=== PATIENT | male | born 1965 | race Caucasian/White ===

== ENCOUNTER 2016-09-12 17:27 | Emergency (ER) | payer SELFPAY ==
[~2016-09-12] VITALS: Ht 172.7 cm; Wt 99.8 kg
--- NOTE | 2016-09-12 17:30 | NUR ---
pt alonso from home to er bed 11. presents w/ laceration to bridge of the nose and upper lip s/p fall while going after a ball playing tennis. pt etoh. denies ko. placed geoff monitor. 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 blood sugar 113 in the field. pt is aao. stable vitals. awaiting md gallardo.
--- NOTE | 2016-09-12 17:37 | NUR ---
dr thao at bedside for eval.
[2016-09-12] MEDS ORDERED: IV SET PRIMARY 1 EA INFUS.SET MC ONE (17:47)
[2016-09-12] MEDS ORDERED: TDAP [DIPH/PERTUSSIS/TET] 0.5 ML VIAL IM ONE ×2 (17:47→18:00)
[2016-09-12] MEDS ORDERED: IV NS 0.9% 1,000 ML ONE (17:47)
[2016-09-12 17:50] LABS: BASOPHILS % (AUTO) 0.5 % (0.0-2.0); EOSINOPHILS # (AUTO) 0.1 /CMM (0.0-0.7); EOSINOPHILS % (AUTO) 1.1 % (0.0-6.0); HEMATOCRIT 41 % (39-51); HEMOGLOBIN 13.8 g/dL (13.5-17.5); LYMPHOCYTES # (AUTO) 1.8 /CMM (0.8-4.8); LYMPHOCYTES % (AUTO) 21.7 % (20.0-44.0); MEAN CORPUSCULAR HEMOGLOBIN 33 PG (26.0-33.0); MEAN CORPUSCULAR HGB CONC 34 g/dl (31.0-36.0); MEAN CORPUSCULAR VOLUME 96 fL (80-96); MONOCYTES # (AUTO) 0.5 /CMM (0.1-1.30); NEUTROPHILS # (AUTO) 5.8 /CMM (1.8-8.9); NEUTROPHILS % (AUTO) 70.7 % (43.0-81.0); PLATELET COUNT (AUTO) 199 /CMM (150-450); RDW COEFFICIENT OF VARIATION 12.9 (11.5-15.0); RED BLOOD CELL COUNT(AUTO) 4.24 MIL/uL (4.5-6.0); WHITE BLOOD COUNT (AUTO) 8.2 K/uL (4.3-11.0)
--- NOTE | 2016-09-12 17:54 | NUR ---
pt to radiology for head ct scan via wheelchair.
[2016-09-12] MEDS ORDERED: LIDOCAINE 2% 20 ML MDV TP ONE (18:00)
[2016-09-12] MEDS ORDERED: IV NS 0.9% 1,000 ML BAG IV ONE (18:00)
[2016-09-12 18:02] LABS: CALCIUM, SERUM 8.5 mg/dL (8.5-10.1); CREATININE 1.2 mg/dL (0.6-1.3); POTASSIUM 3.9 mmol/L (3.5-5.1)
--- NOTE | 2016-09-12 19:35 | NUR ---
laceration repair done. wound care provided. d/c to friends in stable condition.
[2016-09-12 19:38] VITALS: BP 138/84
== END 2016-09-12 19:41 | disposition home or self-care (01) ==
LOC: ER 17:30
DX: S01.21XA Laceration without foreign body of nose, initial encounter (principal); S01.511A Laceration without foreign body of lip, initial encounter; F10.129 Alcohol abuse with intoxication, unspecified; F17.200 Nicotine dependence, unspecified, uncomplicated; Z88.0 Allergy status to penicillin; Z23 Encounter for immunization; W18.39XA Other fall on same level, initial encounter; Y93.73 Activity, racquet and hand sports; Y92.89 Other specified places as the place of occurrence of the external cause; Y99.9 Unspecified external cause status
CPT/HCPCS: 36415; 70450-TC; 80048-TC; 85025-TC; 90715; A4606; A6403; G0480; J7030; Z7610